=== PATIENT | male | born 2000 ===

== ENCOUNTER 2024-03-16 21:17 | Emergency (ER) | payer OTHER ==
[~2024-03-16] VITALS: Ht 180.3 cm; Wt 88.6 kg
[2024-03-17 02:42] VITALS: BP 129/83; PULSE 77; TEMP 98.5
== END 2024-03-17 02:42 | disposition home or self-care (01) ==
LOC: COL.ER 21:17
DX: J30.9 Allergic rhinitis, unspecified (principal); F17.210 Nicotine dependence, cigarettes, uncomplicated; Z20.822 Contact with and (suspected) exposure to COVID-19